=== PATIENT | male | born 1980 | race African-American/Black ===

== ENCOUNTER 2016-02-12 15:37 | Emergency (ER) | payer BC ==
[~2016-02-12] VITALS: Ht 177.8 cm; Wt 104.3 kg
[2016-02-12 15:48] VITALS: BP 134/72
[2016-02-12] MEDS ORDERED: IBUPROFEN 600600 M1 PO (17:15)
[2016-02-12] MEDS ORDERED: NORCO 5-325 TA1 EACH PO (17:26)
== END 2016-02-12 17:42 | disposition home or self-care (01) ==
LOC: EDBD 15:37 → ER 15:37
DX: S90.31XA Contusion of right foot, initial encounter (principal); W22.8XXA Striking against or struck by other objects, initial encounter; Y93.89 Activity, other specified; Y92.89 Other specified places as the place of occurrence of the external cause; Y99.8 Other external cause status

== ENCOUNTER 2020-08-23 22:51 | Emergency (ER) | payer OTHER, BC ==
[~2020-08-23] VITALS: Ht 177.8 cm; Wt 120.2 kg
[~2020-08-23 22:51] MED LIST: IBUPROFEN 600600 M1 PO; NORCO 5-325 TA1 EACH PO
[2020-08-24] MEDS ORDERED: NAPROSYN500 MG PO (02:34)
[2020-08-24] MEDS ORDERED: ZANAFLEX4 MG PO (02:34)
[2020-08-24 02:40] VITALS: BP 129/86
== END 2020-08-24 02:40 | disposition home or self-care (01) ==
LOC: ER 22:51
DX: S16.1XXA Strain of muscle, fascia and tendon at neck level, initial encounter (principal); S63.682A Other sprain of left thumb, initial encounter; V43.52XA Car driver injured in collision with other type car in traffic accident, initial encounter; Y93.89 Activity, other specified; Y92.89 Other specified places as the place of occurrence of the external cause; Y99.8 Other external cause status